=== PATIENT | male | born 1985 | race Native Hawaiian/Other Pacific Islander ===

== ENCOUNTER 2023-11-02 20:10 | Emergency (ER) | payer OTHER ==
[~2023-11-02] VITALS: Ht 188 cm; Wt 127.3 kg
[2023-11-02 20:26] VITALS: BP 155/95; PULSE 104; RESP 17; TEMP 100.3
[2023-11-02 20:31] LABS: COVID AG,FIA SOURCE NASAL SWAB
[2023-11-02 21:52] LABS: SARS-COV2 (COVID) ANTIGEN,FIA Negative (Negative)
[2023-11-02] MEDS ORDERED: KETOROLAC TROMETHAMINE 30 MG/ML VIAL IM ONE (22:15)
[2023-11-02] MEDS ORDERED: DEXAMETHASONE 4 MG TABLET PO ONE (22:15)
[2023-11-02] MEDS ORDERED: AMPICILLIN SODIUM/SULBACTAM NA 3 GM in SODIUM CHLORIDE 0.9% 100 ML IV ONE (22:30)
[2023-11-02] MEDS: ACETAMINOPHEN 500 MG TABLET PO ONE (22:50)
[2023-11-02] MEDS: SODIUM CHLORIDE 0.9% 1,000 ML IV ONE (22:51)
[2023-11-02 22:54] LABS: BASOPHILS % (AUTO) 0.7 % (0.0-2.0); EOSINOPHILS % (AUTO) 1.9 % (1.0-6.0); HEMATOCRIT 44.5 % (41-53); HEMOGLOBIN 14.7 g/dL (13.5-17.5); LYMPHOCYTES # (AUTO) 2.3 K/uL (1.0-4.8); LYMPHOCYTES % (AUTO) 20.2 % (22.0-44.0); MEAN CORPUSCULAR HEMOGLOBIN 29.9 pg (26.0-34.0); MEAN CORPUSCULAR HGB CONC 33.1 G/dL (31.0-37.0); MEAN CORPUSCULAR VOLUME 91 fL (80-100); MONOCYTES # (AUTO) 0.9 K/uL (0.1-1.0); MONOCYTES % (AUTO) 8.1 % (2.0-9.0); NEUTROPHILS % (AUTO) 69.1 % (40.0-70.0); PLATELET COUNT (AUTO) 294 K/uL (150-450); RED BLOOD CELL COUNT(AUTO) 4.91 MIL/uL (4.50-5.90); RED CELL DISTRIBUTION WIDTH 12.6 % (11.5-14.5); WHITE BLOOD COUNT (AUTO) 11.6 K/uL (4.5-11.0)
[2023-11-02 22:59] LABS: ANION GAP 10 mmol/L (8-16); CALCIUM, TOTAL 8.9 mg/dL (8.8-10.5); CARBON DIOXIDE 25 mmol/L (22-29); CHLORIDE 99 mmol/L (98-107); CREATININE 1.24 mg/dL (0.60-1.30); GLOMERULAR FILTR. RATE CALC > 60 mL/min (>60); GLUCOSE,RANDOM 102 mg/dL (70-110); POTASSIUM 3.9 mmol/L (3.5-5.1); SODIUM SERUM 134 mmol/L (136-145); UREA NITROGEN, BLOOD 11 mg/dL (7-18)
[2023-11-02] MEDS: DEXAMETHASONE SOD PHOS 4 MG/ML 5 ML VIAL IVP ONE (23:00)
[2023-11-02] MEDS: KETOROLAC TROMETHAMINE 30 MG/ML VIAL IVP ONE (23:01)
[2023-11-02] MEDS ORDERED: IBUP-1493 PO (23:16)
[2023-11-02] MEDS ORDERED: AMOX-457 PO (23:16)
[2023-11-02] MEDS ORDERED: HYDR-4062 PO (23:17)
[2023-11-02] MEDS ORDERED: IOHEXOL 350 MG/ML 100 ML VIAL ONE (23:18)
[2023-11-02] MEDS ORDERED: SODIUM CHLORIDE 0.9% 100 ML ONE (23:18)
[2023-11-03] MEDS: CefTRIAXone SODIUM 2 GM in DEXTROSE 5%-WATER 50 ML IV ONE (02:11)
== END 2023-11-03 03:18 | disposition home or self-care (01) ==
LOC: EMS 20:10
DX: J02.9 Acute pharyngitis, unspecified (principal); F17.210 Nicotine dependence, cigarettes, uncomplicated; Z20.822 Contact with and (suspected) exposure to COVID-19
CPT/HCPCS: 99285; 70491; 96375; 96361; 87426; 80048; 85025; 87430; 36415; 96365; Q9967; J1100; J1885; J7030; J7050; J0696; J7060; J0295

== ENCOUNTER 2023-11-04 13:04 | Emergency (ER) | payer OTHER ==
[~2023-11-04] VITALS: Ht 188 cm; Wt 127.3 kg
[~2023-11-04 13:04] MED LIST: AMOX-457 PO; HYDR-4062 PO; IBUP-1493 PO
[2023-11-04 13:11] VITALS: TEMP 99.3
[2023-11-04 14:14] LABS: BASOPHILS % (AUTO) 0.9 % (0.0-2.0); EOSINOPHILS % (AUTO) 1.2 % (1.0-6.0); HEMATOCRIT 42.5 % (41-53); HEMOGLOBIN 13.9 g/dL (13.5-17.5); LYMPHOCYTES # (AUTO) 2.5 K/uL (1.0-4.8); LYMPHOCYTES % (AUTO) 17.7 % (22.0-44.0); MEAN CORPUSCULAR HEMOGLOBIN 29.8 pg (26.0-34.0); MEAN CORPUSCULAR HGB CONC 32.7 G/dL (31.0-37.0); MEAN CORPUSCULAR VOLUME 91 fL (80-100); MONOCYTES # (AUTO) 1.2 K/uL (0.1-1.0); MONOCYTES % (AUTO) 8.3 % (2.0-9.0); NEUTROPHILS % (AUTO) 71.9 % (40.0-70.0); PLATELET COUNT (AUTO) 291 K/uL (150-450); RED BLOOD CELL COUNT(AUTO) 4.67 MIL/uL (4.50-5.90); RED CELL DISTRIBUTION WIDTH 12.8 % (11.5-14.5); WHITE BLOOD COUNT (AUTO) 13.9 K/uL (4.5-11.0)
[2023-11-04] MEDS: BENZOCAINE 20% 50 MCG/SPRAY 57 GM TP ONE (14:24)
[2023-11-04 14:27] LABS: ANION GAP 10 mmol/L (8-16); CALCIUM, TOTAL 8.5 mg/dL (8.8-10.5); CARBON DIOXIDE 24 mmol/L (22-29); CHLORIDE 101 mmol/L (98-107); GLOMERULAR FILTR. RATE CALC > 60 mL/min (>60); GLUCOSE,RANDOM 97 mg/dL (70-110); POTASSIUM 3.5 mmol/L (3.5-5.1); SODIUM SERUM 135 mmol/L (136-145); UREA NITROGEN, BLOOD 13 mg/dL (7-18)
[2023-11-04] MEDS: DEXAMETHASONE SOD PHOS 4 MG/ML 5 ML VIAL IVP ONE (14:28)
[2023-11-04] MEDS: KETOROLAC TROMETHAMINE 30 MG/ML VIAL IVP ONE (14:28)
[2023-11-04] MEDS: LIDOCAINE 1%/EPI 1:200,000/PF 10 ML VIAL ID ONE (14:32)
[2023-11-04] MEDS: AMPICILLIN SODIUM/SULBACTAM NA 3 GM in SODIUM CHLORIDE 0.9% 100 ML IV ONE (19:05)
[2023-11-05] MEDS: SODIUM CHLORIDE 0.9% 1,000 ML IV ONE (00:26)
[2023-11-05] MEDS: AMPICILLIN SODIUM/SULBACTAM NA 3 GM in SODIUM CHLORIDE 0.9% 100 ML IV ONE (00:36)
[2023-11-05 01:55] VITALS: BP 144/65; PULSE 67; RESP 14
== END 2023-11-05 04:04 | disposition short-term general hospital (02) ==
LOC: EMS 13:04
DX: J36 Peritonsillar abscess (principal); F17.210 Nicotine dependence, cigarettes, uncomplicated
CPT/HCPCS: 99285; 96365; 70491; 96375; 80048; 85025; 36415; 96367; J1100; J1885; J3490; J0295 ×2; J7050 ×2